=== PATIENT | female | born 1970 | race Caucasian/White ===

== ENCOUNTER 2017-09-13 09:33 | Inpatient (IN) | payer OTHER ==
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
[2017-09-13] MEDS ORDERED: LIDOCAINE 5% TOPICAL PATCH TP ONE (10:17)
[2017-09-13] MEDS ORDERED: KETOROLAC TROMETHAMINE 15 MG/ML VIAL IVPUSH ONE (10:17)
[2017-09-13] MEDS ORDERED: SODIUM CHLORIDE 0.9% 1000 ML INFUS.BAG IV ONE (10:17)
[2017-09-13] MEDS ORDERED: FAMOTIDINE 20 MG/50 ML IVPB 20 MG/50 ML MG IVPB ONE ×2 (10:17→11:20)
[2017-09-13] MEDS ORDERED: KETOROLAC TROMETHAMINE 15 MG/ML VIAL ONE (10:47)
[2017-09-13] MEDS ORDERED: LIDOCAINE 5% TOPICAL PATCH ONE (10:47)
[2017-09-13 11:05] LABS: BASO % 0.4 % (0-2.0); EOS % 3.3 % (0-4.5); HEMATOCRIT 40.5 % (32.4-45.2); HEMOGLOBIN 13.4 GM/dL (10.7-15.3); LYMPH % 34.5 % (8-40); MCH 28.2 pg (25.7-33.7); MCHC 33.1 g/dl (32.0-36.0); MEAN CELL VOLUME 85.1 fl (80-96); MONO % 8.9 % (3.8-10.2); NEUT % 52.9 % (42.8-82.8); PLATELET COUNT 235 K/MM3 (134-434); RBC 4.75 M/mm3 (3.60-5.2); RDW 14.2 % (11.6-15.6); WHITE BLOOD COUNT 4.7 K/mm3 (4.0-10.0)
[2017-09-13 11:27] LABS: INR 1.03 (0.82-1.09); PROTHROMBIN TIME (PATIENT) 11.6 SEC (9.7-13.0)
[2017-09-13 11:30] LABS: ACTIVATED PTT 39.5 SECONDS (25.2-36.5)
[2017-09-13 11:33] LABS: ALBUMIN 4.2 g/dl (3.4-5.0); ALK PHOS 68 U/L (45-117); ANION GAP 5 (8-16); BILIRUBIN,TOTAL 1.6 mg/dL (0.2-1.0); BLOOD UREA NITROGEN 16 mg/dL (7-18); CALCIUM 9.5 mg/dL (8.5-10.1); CHLORIDE 107 mmol/L (98-107); CO2 30 mmol/L (21-32); CREATININE 0.6 mg/dL (0.55-1.02); GLUCOSE,RANDOM 81 mg/dL (74-106); POTASSIUM 4.3 mmol/L (3.5-5.1); SGOT/AST 14 U/L (15-37); SGPT/ALT 22 U/L (12-78); SODIUM 142 mmol/L (136-145)
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
[2017-09-13 14:07] LABS: URINE APPEARANCE CLEAR; URINE BILIRUBIN NEGATIVE (<2.0 mg/dL); URINE COLOR YELLOW; URINE GLUCOSE (UA) NEGATIVE (NEGATIVE); URINE KETONE TRACE (NEGATIVE); URINE LEUK ESTERASE NEGATIVE (NEGATIVE); URINE NITRITE NEGATIVE (NEGATIVE); URINE PROTEIN NEGATIVE (NEGATIVE); URINE UROBILINOGEN NEGATIVE mg/dL (0.2-1.0)
[2017-09-13 14:21] LABS: EPI CELLS RARE /HPF (FEW); URINE BACTERIA RARE /hpf (NONE SEEN); URINE HYALINE CAST 1 /lpf; URINE MUCUS FEW
[2017-09-13 17:57] VITALS: BMI 31.1
[2017-09-13] MEDS ORDERED: LIDOCAINE PATCH REMOVAL MC SCH (22:00)
--- NOTE | 2017-09-14 09:12 | EKG ---
Test Reason : Blood Pressure : / mmHG Vent. Rate : 055 BPM Atrial Rate : 055 BPM P-R Int : 160 ms QRS Dur : 074 ms QT Int : 402 ms P-R-T Axes : 073 056 036 degrees QTc Int : 384 ms SINUS BRADYCARDIA NORMAL ECG Confirmed by OTONIEL DIGGS MD ([id number]) on 09/14/2017 9:12:37 AM Referred By: Confirmed By:OTONIEL DIGGS MD
[2017-09-14 11:54] VITALS: BP 129/76; PULSE 57; TEMP 98
--- NOTE | 2017-09-14 13:41 | PN ---
Physical Exam: SUBJECTIVE: Patient evaluated at bedside. No complaints. OBJECTIVE: Vital Signs Period Temp Pulse Resp BP Sys/Orozco Pulse Ox Last 24 Hr 97.3 F-98.0 F 57-70 16-21 112-140/46-77 98-99 GENERAL: The patient is awake, alert, and fully oriented, in no acute distress. Physical Examination otherwise as per Orthopaedics Laboratory Results - last 24 hr 09/13/17 09/13/17 13:30 13:49 Urine Color Yellow Urine Appearance Clear Urine pH 5.0 Ur Specific Hope 1.023 Urine Protein Negative Urine Glucose (UA) Negative Urine Ketones Trace H Urine Blood 2+ H Urine Nitrite Negative Urine Bilirubin Negative Urine Urobilinogen Negative Ur Leukocyte Esterase Negative Urine WBC (Auto) 3 Urine RBC (Auto) 3 Ur Epithelial Cells Rare Urine Bacteria Rare Hyaline Casts 1 Urine Mucus Few Blood Type O POSITIVE Active Medications Generic Name Dose Route Start Last Admin Trade Name Freq PRN Reason Stop Dose Admin Miscellaneous 1 each 09/13/17 22:00 09/13/17 21:20 Lidoderm Patch Removal 1 each DAILY@2200 [facility] Administration ASSESSMENT/PLAN: 47 y/o F admitted for pre-operative evaluation prior to L4-L5 PLIF today. #All studies WNL #NPO since midnight #DVT ppx - LE SCD's #Dispo: monitor on med/surg Visit type - Emergency Visit Emergency Visit: No - New Patient This patient is new to me today: Yes Date on this admission: 09/14/17 - Critical Care Critical Care patient: No
--- NOTE | 2017-09-14 15:57 | DS ---
Physical Exam: SUBJECTIVE: Patient evaluated at bedside. No complaints. OBJECTIVE: Vital Signs Period Temp Pulse Resp BP Sys/Orozco Pulse Ox Last 24 Hr 97.3 F-98.3 F 57-70 16-21 112-140/46-81 98-99 PHYSICAL EXAM GENERAL: The patient is awake, alert, and fully oriented, in no acute distress. Physical examination otherwise as per orthopaedics. LABS HOSPITAL COURSE: Date of Admission:09/13/17 Patient is a 47 y/o F admitted for planned L4/L5 PLIF. Pre-operative labs were normal. Surgery was cancelled and the patient was discharged. Date of Discharge: 09/14/17 Minutes to complete discharge: 40 <Antonio Gandara - Last Filed: 09/14/17 15:55> Physical Exam: SUBJECTIVE: Patient seen and examined OBJECTIVE: Vital Signs Period Temp Pulse Resp BP Sys/Orozco Pulse Ox Last 24 Hr 97.6 F-98.3 F 57-68 18-21 129-137/76-81 98-98 PHYSICAL EXAM GENERAL: The patient is awake, alert, and fully oriented, in no acute distress. HEAD: Normal with no signs of trauma. EYES: PERRL, extraocular movements intact, sclera anicteric, conjunctiva clear. ENT: Ears normal, nares patent, oropharynx clear without exudates, moist mucous membranes. NECK: Trachea midline, full range of motion, supple. LUNGS: Breath sounds equal, clear to auscultation bilaterally, no wheezes, no crackles, no accessory muscle use. HEART: Regular rate and rhythm, S1, S2 without murmur, rub or gallop. ABDOMEN: Soft, nontender, nondistended, normoactive bowel sounds, no guarding, no rebound, no hepatosplenomegaly, no masses. EXTREMITIES: 2+ pulses, warm, well-perfused, no edema. NEUROLOGICAL: Cranial nerves II through XII grossly intact. Normal speech, gait not observed. PSYCH: Normal mood, normal affect. SKIN: Warm, dry, normal turgor, no rashes or lesions noted. LABS HOSPITAL COURSE: Date of Admission:09/13/17 Date of Discharge: 09/14/17 Minutes to complete discharge: 30 <Jamie Peraza - Last Filed: 09/14/17 18:44> Discharge Summary Reason For Visit: LBP, PRE-OP EXAMINATION Current Active Problems Low back pain (Acute) Pre-op evaluation (Acute) - Home Medications Comprehensive Discharge Medication List: Ambulatory Orders Cyclobenzaprine HCl [Flexeril -] 10 mg PO TID 09/13/17 <Antonio Gandara - Last Filed: 09/14/17 15:55> - Home Medications Comprehensive Discharge Medication List: Ambulatory Orders Cyclobenzaprine HCl [Flexeril -] 10 mg PO TID 09/13/17 <Jamie Peraza - Last Filed: 09/14/17 18:44> Condition: Stable - Instructions Diet, Activity, Other Instructions: You were admitted to the hospital for surgery on your back. Your pre-operative labs were normal. Your surgery was cancelled and you were discharged. Referrals Please see your orthopaedic surgeon, Dr. Melendrez, within one week of discharge. Please see your primary care provider, Dr. Martinez, within one week of discharge. Medical recommendations Resume normal activities as tolerated. If you experience any new weakness, numbness, tingling, or any other new symptom , please return to the Emergency Department. Referrals: Antonio Melendrez MD [Staff Physician] - Ignacia Martinez [Primary Care Provider] - Disposition: HOME This patient is new to me today: Yes Date on this admission: 09/14/17 Emergency Visit: No Critical Care patient: No - Discharge Referral Referred to [facility] No <Antonio Gandara - Last Filed: 09/14/17 15:55>
== END 2017-09-14 16:29 | disposition home or self-care (01) | DRG 552 ==
LOC: JER 09:33 → JERBED 11:31 → J6S 17:02
PROVIDERS: ADMIT Internal Medicine; ATTEND Internal Medicine
DX: M54.5 Low back pain (principal)
CPT/HCPCS: 36415; 71045-TC-FY; 80053; 81003; 81015; 84703; 85025; 85610; 85730; 86850; 86900; 86901; 93005; 93010; 99285-25; J7030